=== PATIENT | male | born 1980 | race Caucasian/White ===

== ENCOUNTER 2017-08-18 23:53 | Emergency (ER) | payer SELFPAY ==
[~2017-08-18] VITALS: Ht 182.9 cm; Wt 122.4 kg
[~2017-08-18 23:53] MED LIST: BENADRYL25 MG PO; DILAUDID2 MG PO; FLEXERIL10 MG PO; MOTRIN800 MG PO; NORCO 5/3251 TABLET PO; PEPCID20 MG PO; PREDNISONE10 M1 PO; PRILOSEC40 MG PO; TIZANIDINE HCL4 M1 PO; TYLENOL EXTRA500 MG PO
[2017-08-19] MEDS ORDERED: PEN-VEE K,VEET500 MG PO (02:12)
[2017-08-19] MEDS ORDERED: NORCO 5/3251 TABLET PO (02:12)
[2017-08-19 02:36] VITALS: BP 112/82
== END 2017-08-19 02:40 | disposition home or self-care (01) ==
LOC: EME 23:53
DX: K02.9 Dental caries, unspecified (principal); F17.200 Nicotine dependence, unspecified, uncomplicated; Z88.2 Allergy status to sulfonamides
CPT/HCPCS: 99281; 99283